=== PATIENT | female | born 1985 | race Caucasian/White ===

== ENCOUNTER 2017-05-26 22:13 | Emergency (ER) | payer BC, OTHER, SELFPAY ==
[2017-05-26] MEDS ORDERED: Fluorescein Opthalmic Strip ONE (22:27)
[2017-05-26] MEDS ORDERED: Tetracaine HCl 0.5% Ophth Soln 2 ML Bottle ONE (22:28)
[2017-05-26] MEDS ORDERED: Gentamicin Ophth Soln 0.3% 5 ml Bottle ONE (22:49)
== END 2017-05-26 23:05 | disposition home or self-care (01) ==
LOC: BURERS 22:13
DX: H10.9 Unspecified conjunctivitis (principal); F17.210 Nicotine dependence, cigarettes, uncomplicated
CPT/HCPCS: 99282

== ENCOUNTER 2019-08-31 19:50 | Emergency (ER) | payer OTHER ==
[2019-08-31] MEDS ORDERED: Morphine 4 MG/ML VIAL ONE (20:06)
[2019-08-31] MEDS ORDERED: Ketorolac Tromethamine 30 MG/ML VIAL ONE (20:07)
[2019-08-31] MEDS ORDERED: Ondansetron PF 4 MG/2 ML Vial ONE (20:13)
[2019-08-31 20:28] LABS: #Basophils 0.1 thou/uL (0.0-0.2); #Eosinphils 0.9 thou/uL (0.0-0.7); #Lymphocytes 4.2 thou/uL (1.20-3.40); #Monocytes 0.7 thou/uL (0.11-0.59); #Neutrophils 5.6 thou/uL (1.40-6.50); %Basophils 0.9 % (0.0-1.0); %Eosinophils 7.4 % (0.0-10.0); %Lymphocytes 36.5 % (21.0-51.0); %Monocytes 6.4 % (0.0-10.0); %Neutrophils 48.8 % (42.0-75.0); Hemoglobin 14.4 g/dL (12.0-16.0); Mean Corpuscular HGB CONC 31.8 g/dL (32.0-36.0); Mean Corpuscular Hemoglobin 30.3 pg (27.0-31.0); Mean Corpuscular Volume 95.1 fL (78.0-98.0); Mean Platelet Volume 7.4 fL (7.4-10.4); Platelet Count 239 thou/uL (130-400); RBC Distribution Width 12.6 % (11.5-14.5); Red Blood Cell (RBC) Count 4.75 mill/uL (4.20-5.40); White Blood Cell (WBC) Count 11.5 thou/uL (4.8-10.8)
[2019-08-31 20:32] LABS: BHCG - Serum Negative (NEGATIVE); Pregs Control Background? CLEAR/WHITE (CLR/WHITE); Pregs Control Bar Appear? YES (CONTROL BAR)
[2019-08-31 20:43] LABS: ALT (SGPT) 41 U/L (8-55); AST (SGOT) 32 U/L (5-34); Albumin 4.5 g/dL (3.5-5.0); Alcohol 148 mg/dL (Less than 10); Alkaline Phosphatase 54 U/L (40-110); Anion Gap 17 mmol/L (10-20); BUN (Urea Nitrogen) 10 mg/dL (7.0-18.7); Bilirubin, Total 0.2 mg/dL (0.2-1.2); Calc. Creatinine Clearance 0 mL/min (70-130); Calcium 9.7 mg/dL (7.8-10.44); Carbon Dioxide 25 mmol/L (22-29); Chloride 107 mmol/L (98-107); Estimated GFR-MDRD 69; Globulin 3.4 g/dL (2.4-3.5); Glucose 84 mg/dL (70-105); Lipase 18 U/L (8-78); Potassium 3.7 mmol/L (3.5-5.1); Protein, Total 7.9 g/dL (6.0-8.3); Sodium 145 mmol/L (136-145)
[2019-08-31] MEDS ORDERED: Fentanyl 100 MCG/2 ML VIAL ONE ×2 (20:45→21:28)
[2019-08-31 21:18] LABS: Bilirubin Negative (Negative); Blood, Urine Trace (Negative); Clarity Slightly Cloudy (Clear); Glucose, Urine (Dipstick) Negative (Negative); Leukocyte Negative (Negative); Nitrite Negative (Negative); Protein, Urine (Dipstick) Negative (Neg-Trace); Urobilinogen 0.2 mg/dL (Less than 2)
[2019-08-31 21:19] LABS: Bacteria/HPF 1+ HPF (None Seen); Broad Cast None Seen LPF (None Seen); Cellular Cast None Seen LPF (None Seen); Epithelial Cast None Seen LPF (None Seen); Fatty Cast None Seen LPF (None Seen); Mucous/LPF None Seen LPF (<2+); Other Casts None Seen LPF (None Seen); Oval Fat Bodies/HPF None Seen HPF (None Seen); RBC/HPF 0-3 HPF (0-3); Red Blood Cell Cast None Seen LPF (None Seen); Renal Epithelial None Seen HPF (None Seen); Sperm/HPF None Seen HPF (None Seen); Squamous Epithelial 0-3 HPF (0-3); Transitional Epithelial None Seen HPF (None Seen); Trichomonas/HPF None Seen HPF (None Seen); WBC/HPF 0-3 HPF (0-3); Waxy Cast None Seen LPF (None Seen); White Blood Cell Cast None Seen LPF (None Seen); Yeast-Budding None Seen HPF (None Seen); Yeast-Hyphae None Seen HPF (None Seen)
[2019-08-31 21:20] LABS: Calcium Oxalate Crystals None Seen HPF (None Seen); Triple Phosphate Crystal None Seen HPF (None Seen); Unclassified Crystals None Seen HPF (None Seen)
--- NOTE | 2019-08-31 21:22 | CT ---
CT ABDOMEN NONCONTRAST CT PELVIS NONCONTRAST: (Urolithiasis protocol) DATE: 08/31/2019 HISTORY: 33-year-old female with left flank pain TECHNIQUE: IV injection of iodinated contrast media: None Oral contrast media: None FINDINGS: Other than for urolithiasis, the lack of IV and oral contrast limits the evaluation. Liver: No contour abnormalities. Spleen: No splenomegaly. Pancreas: No contour abnormalities. Adrenals: No mass. Kidneys: 2 tiny calculi at left renal lower pole calyces, approximately 2 mm each. No hydronephrosis. Ureters: No calculi. Bladder: No calculi. Abdominal aorta: No aneurysm. Small bowel: No dilation. Colon: No adjacent fat stranding. Appendix: No dilation or adjacent fat stranding. Free air: None Free fluid: None IMPRESSION: 1. No acute findings. 2. Mild nephrolithiasis consisting of 2 tiny left renal calculi. 3. No obstructive uropathy.
== END 2019-08-31 21:49 | disposition short-term general hospital (02) ==
LOC: BURERS 19:50
DX: R10.32 Left lower quadrant pain (principal); F17.210 Nicotine dependence, cigarettes, uncomplicated
CPT/HCPCS: 74176; 80053; 80307; 81003; 81015; 83690; 84703; 85025; 96361; 96374; 96375; 96376; J1885; J2270; J2405; J3010

== ENCOUNTER 2020-05-18 13:19 | Emergency (ER) | payer OTHER ==
--- NOTE | 2020-05-18 13:55 | RAD ---
Exam:3 views right ankle HISTORY: Rolled ankle. Patient heard a pop and feels pain. Swelling. COMPARISON: None FINDINGS: Intact ankle mortise. No fracture. Preserved joint spaces. Lateral soft tissue swelling. IMPRESSION: Lateral soft tissue swelling. Correlate for ligamentous injury. No fracture.
[2020-05-18] MEDS ORDERED: Ibuprofen 800 MG TAB ONE (14:01)
== END 2020-05-18 14:54 | disposition home or self-care (01) ==
LOC: BURERS 13:19
DX: S93.431A Sprain of tibiofibular ligament of right ankle, initial encounter (principal); F17.210 Nicotine dependence, cigarettes, uncomplicated; X50.9XXA Other and unspecified overexertion or strenuous movements or postures, initial encounter

== ENCOUNTER 2021-01-26 06:24 | Emergency (ER) | payer BC, OTHER ==
[2021-01-26] MEDS ORDERED: Tetracaine 0.5% PF 4 ML BOT ONE (06:35)
[2021-01-26] MEDS ORDERED: Fluorescein Opthalmic Strip ONE (06:35)
== END 2021-01-26 07:00 | disposition home or self-care (01) ==
LOC: BURERS 06:24
DX: T15.01XA Foreign body in cornea, right eye, initial encounter (principal)
CPT/HCPCS: 99283

== ENCOUNTER 2022-03-11 20:14 | Emergency (ER) | payer BC ==
[2022-03-11 20:51] LABS: Bilirubin Negative (Negative); Blood, Urine Trace (Negative); Clarity Clear (Clear); Glucose, Urine (Dipstick) Negative (Negative); Ketone, Urine Negative (Negative); Leukocyte Negative (Negative); Nitrite Negative (Negative); Protein, Urine (Dipstick) Negative (Neg-Trace); Specific Gravity, Urine 1.025 (1.005-1.030); Urobilinogen 0.2 mg/dL (Less than 2)
[2022-03-11 20:53] LABS: Bacteria/HPF Rare-Few HPF (None Seen); RBC/HPF 0-3 HPF (0-3); Squamous Epithelial 0-3 HPF (0-3); WBC/HPF 0-3 HPF (0-3)
[2022-03-11] MEDS ORDERED: traMADol HCl 50 MG TAB ONE (21:07)
== END 2022-03-11 22:00 | disposition home or self-care (01) ==
LOC: BURERS 20:14
DX: S39.012A Strain of muscle, fascia and tendon of lower back, initial encounter (principal); R10.812 Left upper quadrant abdominal tenderness; F17.210 Nicotine dependence, cigarettes, uncomplicated
CPT/HCPCS: 74176; 81003; 81015